=== PATIENT | female | born 1935 | race Caucasian/White ===

== ENCOUNTER 2019-12-16 16:06 | Inpatient (IN) | payer OTHER ==
[~2019-12-16] VITALS: Ht 157.5 cm; Wt 95.3 kg
[2019-12-16 19:25] VITALS: BP 148/88
--- NOTE | 2019-12-17 06:14 | NUR ---
1923 84 OLD FEMALE WAS RECEIVED VIA CART WITH EMS PERSONNEL FROM [facility] GIVING REPORT. PT PRESENTS AAOX3, DROWSY, CALM AND COOPERATIVE, SKIN W/D, PT SITTING VS 148/88, P 102, R 18, T98.1, 02SAT 96% RA RR EVEN AND NONLABORED ON RA. NOTED CLEAN, DRY DRESSING ON LEFT BRACHIAL PER REPORT D/C OF IV FROM [facility]. CTR. CONTACTED LYLE GONZALES AND RECEIVED CONSENT FOR TREATMENT. HCP WAS CONSULTED AND ORDERS RECEIVED. ZERO S/S OF EMOTIONAL OR MEDICAL DISTRESS, PT WILL CONTINUE TO BE MONITOR PER [facility].
[2019-12-17 07:27] VITALS: BP 131/62
--- NOTE | 2019-12-17 12:13 | NUR ---
JAMIE PSYCHSOCIAL. JAMIE unable to input psychosocial in assessment section. JAMIE and Dr. Bourne returned pt son Nacho's call. He was upset that Dr. Bourne and JAMIE explained that at this time this unit is not accepting visitors. Dr. Bourne explained that he should be able to contact pt and speak with her, but that the decision making will need to go through pt's daughter Holly who is pt's authorized DPOA. JAMIE and Dr. Bourne contacted Holly at [phone]. She said that her mom was dx with dementia approx. 2 years ago, but started showing signs of it approx. 4 years ago. Up until Sunday pt had been mostly fine; however, that day she began hallucinating and doing strange behaviors such as going outside and sitting in the lawn in front of the house. Pt 's of 61 years on 2018. He too was dx with dementia. Pt does not currently have psych care. She was born and raised in [facility] [facility]. She has 4 siblings; 3 are and her living brother she is estranged from. She is #4 in 5 children. Her youngest brother had a dx of schizophrenia. She does not have a hx of abuse, neglect, or domestic violence. Her 1 marriage brought forth 3 children; Cathleen, Louie, and Nacho. She identifies as Anabaptism and her importance for this is low. She does not work nor has been affliated with the . She resides with Drake and Holly would like her to return if possible, with additional supports such as in home care. She graduated from high school. She utilizes a walker, and needs prompts to bathe. She is diabetic and has cataracts. She utilizes Meals on Wheels every day. She does not have any known allergies to food or drugs. JAMIE team will continue to follow pt during her stay on this unit.
--- NOTE | 2019-12-17 13:49 | NUR ---
PATIENT WAS IN BED SLEEPING WHEN CARE ASSUMED, WHEN AWAKEN, PATIENT AMBULATED TO THE DAYROOM WITH ASSIST OF ROLLER WALKER FOR BREAKFAST. PATIENT IS ALERT, FORGETFUL, WITH PERIODS OF CONFUSION. INTERMITTENTLY FORGETS TO USE WALKER FOR AMBULATION. PATIENT TOOK ALL MEDICATION WHOLE WITHOUT DIFFICULTY. PATIENT IS EATING MEALS, AND DRINKING FLUID FAIRLY WELL. PATIENT DENIES SUICIDAL/HOMICIDAL IDEATION. PATIENT NOT ABLE TO APPROPRIATELY RESPOND TO FURTHER ASSESSMENT QUESTIONS DUE TO COGNITIVE IMPAIRMENT. INK TECHNICIAN STATES TO THIS RN THAT SHE CALLED PATIENT'S DOPA (DAREK GONZALES) AND THAT DAREK TOLD HER PATIENT IS DIABETIC. THIS RN CALLED DAREK ON NUMBER ([phone]) TO CLARIFY THIS INFORMATION. DAREK STATES "MY MOM IS BEARLY DIEBETIC, SHE DOES NOT TAKE ANY MEDICATION FOR DIABETES". THIS CONVEYED BACK TO INK TECHNICIAN. PATIENT PARTICIPATES IN GROUP THERAPY. AFFECT IS BRIGHT, MOOD IS ANXIOUS. CURRENTLY IN GROUP WITH PEERS. NO SIGN OF ACUTE DISTRES NOTED AT THIS TIME, WILL CONTINUE TO REDIRECT, AND MONITOR FOR SAFETY.
[2019-12-17 19:48] VITALS: BP 134/68
[2019-12-17 20:40] VITALS: BP 134/68
--- NOTE | 2019-12-18 01:15 | NUR ---
PATIENT STAYED IN ROOM ALL NIGHT. SHE DID TALK WITH HER SON GEOVANY AND DAUGHTER DAREK BY PHONE. SHE HAS BEEN CALM AND COOPERATIVE. SHE IS A FALL RISK AND FORGETS TO USE WALKER WHEN SHE'S UP IN ROOM AND HAS TO BE REMINDED. PATIENT IS VERY FORGETFUL. SHE DENIES SI/HI/AVH. SHE DENIES PAIN. PATIENT IS INDEPENDENT WITH CARES AND STANDBY SUPERVISION. YELLOW SHIRT ON. BED IN LOW POSITION AND BED ALARM IS ON. ROUTINE ROUNDS TO ASSESS STATUS AND SAFETY OF PATIENT.
[2019-12-18 09:17] VITALS: BP 128/64
--- NOTE | 2019-12-18 17:31 | NUR ---
Alert and orientated X3. Concerned about missing upper dentures. Looked in room and bed. No dentures documented on inventory sheet. Denies SI/HI. Becomes slightly short of breath with slight audible expiratory wheeze with ambulation. Breath sounds clear t/o with good aeration. Reg HR auscultated. Color pink with brisk capillary refill and palpable peripheral pulses. Independent with voiding, reports urinary hesitantcy. Active bowel sounds over large, soft, rounded abdomen. Ambulates with regular, slightly unsteady gait with walker. Rested in room part of the day but spent alot of time in dining room with peers.
[2019-12-18 20:49] VITALS: BP 159/96
--- NOTE | 2019-12-19 01:59 | NUR ---
Pt was in the dayroom at time of assessment. Alert and oriented. Forgetful. Pt was calm and cooperative with assessment. Denies SI/HI. Pt did not have any HS meds. Pt's dtr (DPMANUEL) Aline Moreno called for updates. Update provided. Dtr informed nursing that her brother Nacho will call to speak with pt. Pt's son Nacho called and talked with pt. Pt retired to her room for the night. Pt woke up at about 0100 and was assisted to use the bathroom. Pt now in bed sleeping. Will continue to monitor.
[2019-12-19 07:46] VITALS: BP 160/99
--- NOTE | 2019-12-19 15:04 | NUR ---
JAMIE contacted Aline to discuss discharge plans and the fact that pt's stay is no longer covered after 12/17 by insurance. No answer. JAMIE left [facility]. SW team will continue to follow pt during her stay on this unit.
--- NOTE | 2019-12-19 15:55 | NUR ---
PATIENT HAS BEEN UP, AND OUT ON THE UNIT, AMBULATES SADIE ASSIST OF ROLLER WALKER, GAIT IS UNSTEADY, A VERY HIGH FALL RISK. PATIENT IS ALERT FORGETFUL, VERY CONFUSED, REQUIRES CONSTANT REDIRECTION, FORGETS TO USE WALKER MOST OF THE TIME. PATIENT TOOK ALL MEDICATION WHOLE WITHOUT DIFFICULTY, SHE IS EATING MEALS, AND DRINKING FLUID WELL. PATIENT DENIES SUICIDAL/HOMICIDAL IDEATION. PATIENT IS NOT ABLE TO APPROPRIATELY RESPOND TO FURTHER ASSESSMENT QUESTIONS DUE TO COGNITIVE IMPAIRMENT. PATIENT DENIES HAVING PHYSICAL PAIN, PARTICIPATES IN GROUP THERAPY. AFFECT IS FLAT/BLUNTED, MOOD IS ANXIOUS. PATIENT CURRENTLY SITTING IN DAYROOM WATCHING TV. NO SIGN OF ACUTE DISTRESS NOTED AT THIS TIME, WILL CONTINUE TO REDIRECT, AND MONITOR FOR SAFETY.
[2019-12-19 20:00] VITALS: BP 136/78
--- NOTE | 2019-12-19 20:00 | H ---
[facility] [place] [address] HISTORY AND PHYSICAL Name: FAYE ELMORE Room #: 524B-B ADM IN M.R.#: [id number] Admission: 12/16/19 Attend Phys: Torrey Bourne DO Discharge: Date of : 37 Report #: [id number] THIS REPORT FOR: cc: MARIA ELENA - Family physician unknown FAM - Family physician unknown Torrey Bourne DO ~ CC: Torrey Bourne [facility] unknown DATE OF SERVICE: 12/17/2019 INPATIENT PSYCHIATRIC EVALUATION ATTENDING PHYSICIAN: Torrey Bourne DO DISPUTE RESOLUTION SPECIALIST: Dr. Wright. SOURCES OF INFORMATION: Clinical conversation with sonNacho and then daughter, Cathleen, records from [facility], chart notes here at [facility], interview with the patient. CHIEF COMPLAINT: Inter-hospital transfer from [facility]. She had delusions that seeing things others cannot see, talking to people over her shoulder, allegedly sighting spaceships, so new-onset of psychosis. HISTORY OF PRESENT ILLNESS: This is an 84-year-old female admitted to [facility] on 12/12, she was brought by her son. The patient was noted to be hallucinating that [place] would not see. She was seeing people and states there is a spaceship, probably this is a new issue. Family has reported prior diagnosis of dementia which I believe is worsening. Her son was attempting to take care of her at home. Apparently, the patient had not slept for 2 days, which is complicating psychosis she was noted to be afebrile. No vomiting or nausea reported. No changes in meds. Chest x-ray and head CT was reported as negative. UA shows leukocytes, which she was started on Rocephin. REVIEW OF SYSTEMS: from ER and update on my review: CONSTITUTIONAL: Negative. EYES: Negative. EAR, NOSE, THROAT, MOUTH: Negative. RESPIRATORY: Negative. CARDIOVASCULAR: Negative. GASTROINTESTINAL: Negative. GENITOURINARY: Negative. HEME AND LYMPH: Negative. ENDOCRINE: Negative. [facility] [address] [place] [address] HISTORY AND PHYSICAL Name: FAYE ELMORE Room #: 524B-B ADM IN M.R.#: [id number] Admission: 12/16/19 Attend Phys: Torrey Bourne DO Discharge: Date of : 37 Report #: [id number] MUSCULOSKELETAL: Uses walker. INTEGUMENTARY: Negative. NEUROLOGIC: Negative. PSYCHIATRIC: As described above. Otherwise, review of systems negative. PAST MEDICAL HISTORY: She has a history of a right knee manipulation, total knee arthroscopy on 11/03/2012. She reports her only hospital visits were at [facility] and way back in [place] the [facility]. She reports having moved to [place] from [place] in 1979. She reports she was born in [place]. Interestingly, her daughter reports her place is [place], [place]. Physical exam other than being obese is unremarkable. MEDICATIONS: Prior to psychiatric admission were aspirin, calcium, Keflex, she was reportedly not taking Lipitor, oxybutynin, tramadol, Tylenol, vitamin D3. ALLERGIES: No known allergies. SOCIAL HISTORY: She drinks wine 1-2 times per year. Denies substance usage. Former smoker, quit more than 30 days ago. FAMILY HISTORY: Not able to be obtained due to dementia. LABORATORY DATA: White blood cell count 7.8, H and H 15.1 and 45.4. PT was 12.5, INR 1.1, APTT 31. BUN 15, creatinine looks like 0.2, sodium 144, potassium 4.1, chloride 110, bicarbonate 27, AST 42 which is slightly high, ALT 24, calcium 10.3, albumin 4.1, magnesium 2.2, lactic acid 1.7, procalcitonin less than 0.05. Urinary, nitrites negative, bacteria none seen. Looks like she was seen by the psychiatrist at [facility] who diagnosed her with encephalopathy due to UTI, hallucinations. She was medicated with olanzapine we do not have a specific dose noted, but stated that it did not resolve things. Most likely it was 5 mg q. 4 hours p.r.n. Looks like IV but may be it has been given IM. collateral from DPOA: Her DPOA daughter Cathleen in [place], I did talk to the daughter, urine culture pending. The patient describes to me that she does not know why see is her and she is fully oriented today. VITAL SIGNS: Today, pulse 109, BP 131/62, temperature 98.8 here at [facility] this morning. BMI 38.5, weight 95.396 kg, height 147.48 cm. MUSCULOSKELETAL: assisted gait with walker. MENTAL STATUS EXAMINATION: This is a well-developed, obese female, unkempt, questionable visual impairment as well. Attention intact. [facility] [address] [place] [address] HISTORY AND PHYSICAL Name: FAYE ELMORE Room #: 524B-B ADM IN M.R.#: [id number] Admission: 12/16/19 Attend Phys: Torrey Bourne, Discharge: Date of : 37 Report #: [id number] Concentration fair. Speech is normal rate, volume tone Thought process: Linear and goal directed. Thought content focused on the present. No psychomotor agitation. No psychomotor retardation. Mood and affect were congruent and euthymic, calm. Denied SI or HI. Denied auditory, visual, or tactile hallucinations. Memory not formally tested, but believed to be impaired. Insight limited. Judgment limited. Fund of knowledge, no greater than average. thought content additionally she thought I, Dr. Bourne had sent her this is actually not true. I have not encountered this patient before. FORMULATION: An 84-year-old female transferred from [facility] with overt psychosis, history of dementia, major neurocognitive disorder, unspecified etiology with behavioral disturbance, unspecified psychosis, multiple morbidities including hyperlipidemia, obesity, hypertension. PLAN: Evaluate, stabilize, obtain collateral. With regard to her medications Olanzipine 2.5 mg p.o. 3 times a day, metoprolol succinate 25 mg p.o. daily, escitalopram 10 mg p.o. daily, atorvastatin 20 mg p.o. daily, aspirin 81 mg p.o. daily, amlodipine 5 mg p.o. daily p.r.n. House orders were given. We will evaluate, stabilize, obtain collateral as stated. ESTIMATED LENGTH OF STAY: In the 10-14 days. plan: evaluate and stabilize. do screening including a SLUMS and occupational therapy assessment note for visitation: I told planning a family meeting with Cathleen and if she wishes her son, Nacho. I did not speak with the son, Nacho, unfortunately visitation is not allowed due to otherwise epidemic. STRENGTHS: Insured, supportive family. WEAKNESSES: Advancing age, having a neurodegenerative disorder, other morbidities. <ELECTRONICALLY SIGNED> By: Torrey Bourne DO 12/19/191999 1244 [id number] Torrey Bourne DO /nt
--- NOTE | 2019-12-20 06:06 | NUR ---
Pt alert and oriented. Forgetful. Pt was sitting on her bed at time of assessment. Pt acknwoledged some VH. Voiced to nursing that sometimes she sees things that are not there, like people. Pt was calm and cooperative with assessment. Pt took med as ordered. Pt ambulates via walker. Pt slept well this shift. Denied pain. Fall precaution in place. Will continue to monitor.
[2019-12-20 07:40] VITALS: BP 173/92
[2019-12-20 09:00] VITALS: BP 173/92
--- NOTE | 2019-12-20 10:06 | NUR ---
PT RESTING IN BED. PT COMPLAINED OF DIARREAH THIS AM. PT REFUSED BREAKFAST. PT TOOK MEDS WITHOUT ANY ISSUES. PT DID SAY SHE TAKES MEDS ONE AT A TIME. PT THEN TOOK TWO AND STATED SHE TOOK THEM ALL. THEN PLACED ALL MEDS IN HAND AND SHE TOOK THEM WITHOUT ANY ISSUES. PT USES WALKER FOR AMBULATION, BED ALARM ON.
--- NOTE | 2019-12-20 11:57 | NUR ---
JAMIE left message for LYLE Connolly asking her to call regarding pt's discharge. After clinical review, pt's hospitalization was approved through 12/17; discharge is planned for Thursday 12/21. Dr. Bourne's recommendation is AL. Given the fact that patient lives with her son and he is currently working from home, pt could return home with attendant care services. currently working from home, pt could return home with attendant care services. JAMIE will provide this information to Cathleen upon her return call.
--- NOTE | 2019-12-20 14:53 | NUR ---
TALKED TO SHAHEEN PT DAUGHTER. PT TALKING TO HER ON PHONE. PT HAS BEEN IN ROOM TODAY.
--- NOTE | 2019-12-20 17:00 | NUR ---
PT SITTING ON SIDE OF BED AND STATED SHE DIDN'T THINK SHE WILL BE ABLE TO WALK ALL THE WAY TO DINING ROOM. ASSISTED PT TO STAND UP AND SHE WAS INCON. OF URINE. PT DIDN'T HAVE A BRIEF ON. PT WHEELED DOWN VIA W/C TO DINING ROOM.
[2019-12-20 20:28] VITALS: BP 141/77
--- NOTE | 2019-12-20 23:02 | NUR ---
Pt was in the dayroom at time of assessment. Alert and oriented. Forgetful. Pt was calm and cooperative. Denies pain. Denies SI/HI/AVH. Med given as ordered. Pt had HS snacks. Pt now in bed sleeping. No new complaints at this time. Fall precaution in place. Will continue to monitor.
[2019-12-21 07:36] VITALS: BP 139/72
--- NOTE | 2019-12-21 11:56 | NUR ---
JAMIE spoke to pt's DPOA/Dtr Aline and informed her that pt's insurance did not approve this hospitalization past 12/18/19; subsequently, pt will dc 12/22/19 due to weekend. Family needs to provide transportation. Aline asked if dc could be postponed until 12/23/19 to allow them time to get prepared for patient. JAMIE spoke to Dr. Bourne who approved this. JAMIE provided this information to Aline. She stated there was a possibility that pt could be p/u on 12/22/19 after 6pm once brother is off work. JAMIE asked Aline to confirm w/ brother when he can pickler helper patient and call back with a date and time; 12/22/19 late evening vs. 12/23/19 in the morning. Aline stated she would call JAMIE with this information after she got off at 3:30 pm this date.
--- NOTE | 2019-12-21 17:20 | NUR ---
Assumed care 0700. Pleasant, cooperative, compliant with medications and unit policies. Content to be reading in the dayroom. Does not initiate conversation with peers. Denies SI/HI/AH/VH and no outward indicators of such. No c/o pain. No agitation or irritability.
[2019-12-21 19:55] VITALS: BP 108/69
--- NOTE | 2019-12-22 01:19 | NUR ---
Assumed care on 12/21/19 @ 19:15, VSS, assessment WNL, takes meds whole with thin water. A&Ox3-4, Cooperateive with care. Denies Hallucinations, no behavior indicating current hallucinations. Rafy SI/HI. Reports depression and anxiety related to when she can go home and see her . Acetaminophen 650 provided for general pain of 5/10, upon follow up pain assessment, noted to be in bed with eyes closed, respirations even and unlabored, bed in low position with bed alarm set for patient safety, 45 Santiago scale. Will monitor as per protocol for patient safety and comfort.
[2019-12-22 01:27] VITALS: BP 139/72
[2019-12-22 08:00] VITALS: BP 135/55
--- NOTE | 2019-12-22 08:48 | NUR ---
PT IN ROOM THIS AM AND HAD ANOTHER LOOSE STOOL. PT ORIENTED TO SELF. PT UP WITH ASSIST. PT USUALLY USES A WALKER. PT NEEDED TO BE IN TIARRA CHAIR TO BE TAKEN TO DINING ROOM. PT TOOK MEDS THIS AM WITHOUT ANY ISSUES.
--- NOTE | 2019-12-22 12:33 | NUR ---
Pt's daughter Aline chose the following for HH services: [facility], [facility], [facility], and [facility]. SW team will continue to follow pt during her stay on this unit.
[2019-12-22] MEDS ORDERED: LIPITOR 20 MG T20 M1 PO (14:40)
[2019-12-22] MEDS ORDERED: NORVASC5 MG PO (14:41)
[2019-12-22] MEDS ORDERED: ADULT LOW DOSE81 MG PO (14:41)
[2019-12-22] MEDS ORDERED: METOPROLOL SUCC25 M1 PO (14:41)
[2019-12-22] MEDS ORDERED: OXYBUTYNIN 5 MG5 M1 PO (14:43)
[2019-12-22] MEDS ORDERED: ZYPREXA 5 MG TAB5 M1 PO (14:43)
--- NOTE | 2019-12-22 16:14 | NUR ---
ADM IMMODIUM 2MG PO FOR LOOSE STOOLS.
--- NOTE | 2019-12-22 16:19 | NUR ---
PT GETTING A SHOWER AT THIS TIME.
[2019-12-22 17:09] VITALS: BP 139/72
--- NOTE | 2019-12-22 17:10 | NUR ---
JAMIE D/C NOTE JAMIE received a call from Lulu with [facility] accepting pt's referral. She said they will make contact by Sunday. JAMIE created a SW handout and provided this update to Nacho. JAMIE provided an update to Aline. No other needs for SW team to address at this time.
--- NOTE | 2019-12-22 18:00 | NUR ---
PT SON IS HERE TO TAKE HER HOME. PT TAKEN DOWN VIA W/C PER DR. RAINES. PT VERBALY UNDERSTOOD D/C ORDERS.
== END 2019-12-22 18:25 | disposition home health service (06) | DRG 884 ==
LOC: SBH
PROVIDERS: ADMIT Psychiatry & Neurology Psychiatry; ATTEND Psychiatry & Neurology Psychiatry
DX: F01.50 Vascular dementia, unspecified severity, without behavioral disturbance, psychotic disturbance, mood disturbance, and anxiety (principal); F29 Unspecified psychosis not due to a substance or known physiological condition; I10 Essential (primary) hypertension; E78.5 Hyperlipidemia, unspecified; F03.90 Unspecified dementia, unspecified severity, without behavioral disturbance, psychotic disturbance, mood disturbance, and anxiety; F22 Delusional disorders; Z79.82 Long term (current) use of aspirin; Z79.899 Other long term (current) drug therapy; Z87.891 Personal history of nicotine dependence
CPT/HCPCS: 10880